=== PATIENT | male | born 1975 | race Hispanic/Latino ===

== ENCOUNTER 2021-02-04 10:30 | Outpatient (CLI) | payer MEDICARE | END 2021-02-04 10:31 | disposition home or self-care (01) | LOC: BICRAD 10:30 | PROVIDERS: ATTEND Internal Medicine | DX: I42.8 Other cardiomyopathies (principal); Z95.810 Presence of automatic (implantable) cardiac defibrillator | CPT/HCPCS: 71048 ==

== ENCOUNTER 2021-03-12 18:45 | Emergency (ER) | payer MEDICARE, OTHER | END 2021-03-12 22:56 | disposition home or self-care (01) | LOC: ERS 18:45 | DX: S20.211A Contusion of right front wall of thorax, initial encounter (principal); I11.0 Hypertensive heart disease with heart failure; I50.9 Heart failure, unspecified; E03.9 Hypothyroidism, unspecified; E66.01 Morbid (severe) obesity due to excess calories; J45.909 Unspecified asthma, uncomplicated; Z87.891 Personal history of nicotine dependence; Z79.899 Other long term (current) drug therapy | CPT/HCPCS: 71045; 93005 ==